=== PATIENT | male | born 1945 | race Caucasian/White ===

== ENCOUNTER 2020-01-07 10:09 | Inpatient (IN) | payer MEDICARE, OTHER ==
[~2020-01-07] VITALS: Ht 180 cm; Wt 107.0 kg
[2020-01-07] VITALS (16 sets, daily range): BP systolic 113–147; BP diastolic 69–101
[2020-01-07] MEDS ORDERED: LOPERAMIDE 2 MG (IMODIUM) TABLET PO PRN (10:15)
[2020-01-07] MEDS ORDERED: ACETAMINOPHEN 500 MG TAB (TYLENOL) PO PRN (10:15)
[2020-01-07] MEDS ORDERED: diphenhydrAMINE 25 MG TAB (BENADRYL) PO PRN (10:15)
[2020-01-07] MEDS ORDERED: CALCIUM CARBONATE 500 MG (TUMS) TAB.CHEW PO PRN (10:15)
[2020-01-07] MEDS ORDERED: MELATONIN 3 MG TABLET PO PRN (10:15)
[2020-01-07] MEDS ORDERED: ALPRAZolam 0.25 MG (XANAX) TAB PO PRN (10:15)
[2020-01-07] MEDS ORDERED: DOCUSATE SODIUM 100 MG (COLACE) CAP PO PRN (10:15)
[2020-01-07] MEDS ORDERED: ONDANSETRON 4 MG (ZOFRAN) ORAL DISSOLVE TAB PO PRN (10:15)
[2020-01-07] MEDS ORDERED: ONDANSETRON 4 MG/2 ML (SDV) Z0FRAN IVP PRN (10:15)
[2020-01-07] MEDS ORDERED: MIDAZOLAM 5 MG/5 ML (VERSED) VIAL ONE (10:27)
[2020-01-07] MEDS ORDERED: NS IV 1000 ML 1,000 ML ONE (10:27)
[2020-01-07] MEDS ORDERED: fentaNYL INJECTION 100 MCG/2 ML AMP ONE (10:27)
[2020-01-07] MEDS ORDERED: HEParin (CATH LAB) 2,000 ML IV ONE (10:27)
[2020-01-07] MEDS ORDERED: LIDOCAINE 1% INJ 20 ML 20 ML VIAL ONE (10:27)
[2020-01-07] MEDS ORDERED: NITRO DRIP 25000 MCG/D5W 0 ML IV ONE (10:28)
[2020-01-07] MEDS ORDERED: HEParin 1000 UNIT/ML (10ML VIAL) FOR BOLUS ONE (10:28)
[2020-01-07] MEDS ORDERED: VERAPAMIL 5 MG/2 ML (CALAN) VIAL IV ONE (10:28)
--- NOTE | 2020-01-07 10:54 | Consultation-Cardiology ---
HPI-Cardiology Cardiology Consultation: Date of Consultation 01/07/20 Date of Admission Attending Physician Addie Davila DO Admitting Physician Addie Davila DO Consulting Physician Chitra RESTREPO MD HPI: Time Seen by a Provider: 10:15 Chief Complaint: Ventricular tachycardia This is a 74-year-old gentleman who is a patient of Dr. Davila. I was first called and urgently during an exercise stress test being supervised by Dr. Davila when the patient developed wide complex tachycardia during exercise. Hemodynamically stable. Review of the strips showed sinus tachycardia with ventricular ectopy. Ventricular ectopy increased with exercise and patient developed nonsustained ventricular tachycardia. Resolved during recovery. Dr. Davila will directly admitted the patient for further evaluation. I spoke at length to the patient. He denies active chest pain. He has mild shortness of breath with exertion. He denies any other cardiac complaints. He has no signif icant cardiac history. He has history of diabetes and hypertension. He denies active smoking. No pertinent family history. Indication for exercise stress test with nuclear imaging was preoperative evaluation for left knee surgery. Review of Systems-Cardiology Review of Systems Constitutional: As described under HPI; No As described under HPI, No no symptoms reported, No chills, No fever, No lightheadedness Eyes: No As described under HPI, No no symptoms reported, No blindness, No blurred vision, No contact lenses, No drainage, No decreased acuity, No foreign body sensation, No pain, No vision change Ears/Nose/Throat: No As described under HPI, No no symptoms reported, No chronic hearing loss, No ear discharge, No ear pain, No nasal drainage, No ulcerations Respiratory: No no symptoms reported; As described under HPI; No As described under HPI, No cough, No orthopnea; shortness of breath; No SOB with excertion Cardiovascular: No no symptoms reported; As described under HPI; No As described under HPI, No chest pain, No edema, No irregular heart rate, No lightheadedness, No palpitations Gastrointestinal: No no symptoms reported, No As described under HPI, No abdomen distended, No abdominal pain, No blood streaked bowels, No constipation, No diarrhea, No nausea, No vomiting, No stool coloration changes Genitourinary: No As described under HPI, No burning, No dysuria, No discharge, No frequency, No flank pain, No hematuria, No urgency Skin: No rash, No skin related problems, No ulcerations Psychiatric/Neurological: No anxiety, No depression, No seizure, No focal weakness, No syncope Hematologic: No bleeding abnormalities AXC-Taovsx-Odlrxp Hx Past Medical History PMH As described under Assessment. Allergies and Home Medications Allergies Coded Allergies: No Known Drug Allergies (Unverified , 01/07/20) Patient Home Medication List Home Medication List Reviewed: Yes Physical Exam-Cardiology Physical Exam Vital Signs/I&O 01/07/20 10:42 Pulse 73 Capillary Refill : Constitutional: appears stated age, AAO x 3; No apparent distress; well- developed, well-nourished HEENT: PERRL; No discharge; hearing is well preserved, oral hygience is good; No ulceration, No xanthelasmas are seen Neck: No carotid bruit; carotid pulses are 2 + bilaterally Respiratory: chest is bilaterally symmetric, lungs clear to auscultation; No crackles, No rhonchi, No stridor, No wheezing, No pleural rub Cardiovascular: regular rate-rhythm, S1 and S2; No diastolic murmur, No systolic murmur Gastrointestinal: soft, audible bowel sounds; No spleenomegaly Rectal: deferred Extremities: normal range of motion, normal inspection; No clubbing, No cyanosis, No significant edema; tenderness (left knee.) Neurologic/Psychiatric: no motor/sensory deficits, alert, normal mood/affect, oriented x 3, power is 5/5 both on sides Skin: normal color, warm/dry; No rash, No ulcerations Data Review Labs Laboratory Tests 01/07/20 11:05: White Blood Count 7.6, Red Blood Count 4.91, Hemoglobin 14.5, Hematocrit 44, Mean Corpuscular Volume 89, Mean Corpuscular Hemoglobin 30, Mean Corpuscular Hemoglobin Concent 33, Red Cell Distribution Width 13.6, Platelet Count 203, Mean Platelet Volume 11.1H, Neutrophils (%) (Auto) 76H, Lymphocytes (%) (Auto) 14, Monocytes (%) (Auto) 8, Eosinophils (%) (Auto) 2, Basophils (%) (Auto) 1, Neutrophils # (Auto) 5.8, Lymphocytes # (Auto) 1.1, Monocytes # (Auto) 0.6, Eosinophils # (Auto) 0.1, Basophils # (Auto) 0.0, Sodium Level 138, Potassium Level 4.6, Chloride Level 103, Carbon Dioxide Level 24, Anion Gap 11, Blood Urea Nitrogen 16, Creatinine 1.47H, Estimat Glomerular Filtration Rate 47, BUN/Creatinine Ratio 11, Glucose Level 226H, Calcium Level 9.2, Corrected Ca lcium 9.0, Total Bilirubin 0.4, Aspartate Amino Transf (AST/SGOT) 21, Alanine Aminotransferase (ALT/SGPT) 29, Alkaline Phosphatase 62, Troponin I < 0.028, B- Type Natriuretic Peptide 13.6, Total Protein 7.3, Albumin 4.3 ECG Impression ECG Comment Baseline EKG showed sinus rhythm with no acute ST-T wave abnormalities. Telemetry strip during exercise showed wide complex tachycardia likely monomorphic nonsustained ventricular tachycardia. Resolved during recovery. A/P-Cardiology Assessment/Admission Diagnosis Nonsustained ventricular tachycardia during exercise stress test. Shortness of breath with exertion, Preoperative evaluation for left knee surgery, Abnormal nuclear stress test, New onset cardiomyopathy, Hypertension, Diabetes Plan Nonsustained ventricular tachycardia during exercise stress test. Will recommend urgent coronary angiography. I discussed at length with the patient and informed consent was taken. 1-2 percent risk of complications including nerve damage, vascular damage, myocardial damage and even was discussed. This was accepted by the patient and we decided to proceed. Shortness of breath with exertion, no florid congestive heart failure on examination. Preoperative evaluation for left knee surgery, Abnormal nuclear stress test, review of myocardial perfusion imaging showed severe intensity, intermediate size distal anterior apical ischemia. Coronary angiography is urgently recommended. New onset cardiomyopathy, ejection fraction on myocardial perfusion imaging is 31 percent. Patient does have mild shortness of breath. We will request an echocardiogram for more accurate evaluation of ejection fraction. Hypertension, we will start outpatient medical therapy. Diabetes, deferred to Dr. Davila. Complicated patient as above. Thank you for your consultation. Please call me if you have any questions. William Restrepo MD, FACP, FACC, FSCAI, FHRS, CCDS Interventional Cardiology Cardiac Electrophysiology Vascular Medicine and Endovascular Interventions Chitra RESTREPO MD January 07, 2020 10:54
--- OUTSIDE RECORDS SUMMARY | 2020-01-07 11:04 | XMS REPORT | Continuity of Care Document ---
Author Organization Unknown Address Unknown Phone Unavailable Allergies There is no data. Medications There is no data. Problems There is no data. Procedures There is no data. Results There is no data. Encounters ACCT No. Visit Date/Time Discharge Status Pt. Type Provider Facility Loc./Unit Complaint [id number] 11/23/2019 07:00:00 020 23:59:59 CLS Preadmit OSKAR ROMERO DO [facility] CARD CAD IN [place] [id number] 01/07/2020 07:00:00 P EN Preadmit OSKAR ROMERO DO [facility] [place]
[2020-01-07 11:16] LABS: BASOPHILS % (AUTO) 1 % (0-10); EOSINOPHILS # (AUTO) 0.1 10^3/uL (0.0-0.3); EOSINOPHILS % (AUTO) 2 % (0-10); HEMATOCRIT 44 % (40-54); HEMOGLOBIN 14.5 G/DL (13.3-17.7); LYMPHOCYTES # (AUTO) 1.1 X 10^3 (1.0-4.0); LYMPHOCYTES % (AUTO) 14 % (12-44); MEAN CORPUSCULAR HEMOGLOBIN 30 PG (25-34); MEAN CORPUSCULAR HGB CONC 33 G/DL (32-36); MEAN CORPUSCULAR VOLUME 89 FL (80-99); MEAN PLATELET VOLUME 11.1 FL (7.4-10.4); MONOCYTES # (AUTO) 0.6 X 10^3 (0.0-1.0); MONOCYTES % (AUTO) 8 % (0-12); NEUTROPHILS # (AUTO) 5.8 X 10^3 (1.8-7.8); NEUTROPHILS % (AUTO) 76 % (42-75); PLATELET COUNT 203 10^3/uL (130-400); RED CELL DISTRIBUTION WIDTH 13.6 % (10.0-14.5); WHITE BLOOD COUNT 7.6 10^3/uL (4.3-11.0)
--- NOTE | 2020-01-07 11:16 | History & Physical-Hospitalist ---
History of Present Illness HPI/Chief Complaint CC: Abnormal stress test with ventricular tachycardia HPI: This is a 74WM clinic Pt for the past one year, with a PMH of diabetes and history of breast CA, and colon CA, who has never underwent any type of cardiac risk stratification, who was originally scheduled for a stress test before the [place] Virus pandemic, he canceled that six weeks ago, rescheduled and that was performed today for pre-op cardiac risk stratification although he walks normally and is very active and has no significant cardiac concerns per patient who was performing on the treadmill and at stage two he began having episodes of ventricular tachycardia and that was essentially sustained for quite some time, he was asymptomatic, no chest pain, no SOB, so Dr. Restrepo was consulted, who just happened to be in the heart center, and he evaluated that to be ventricular tachycardia, needs a cardiac catheterization, he will review the cardiac stress test and I updated the Pt on the plan. Dr. Restrepo reviewed the cardiac stress images showing ejection fraction of 31% and a defect. Cardiac catheterization was then performed showing a stenosis of the coronary vessel in the distal LAD 70-80% with haziness, one stent deployed and he will be monitored in the ICU overnight and he will be started on Plavix and appropriate other medications and I did update Dr. Montoya on this and he will have to hold off on the knee replacement surgery for at least six months. Date Seen 01/07/20 Time Seen by a Provider: 09:00 Attending Physician Addie Romero DO PCP Addie Romero DO Referring Physician Date of Admission January 07, 2020 at 10:12 Home Medications & Allergies Home Medications Reviewed patient Home Medication Reconciliation performed by pharmacy medication reconciliations glass installer technician and/or nursing. Patients Allergies have been reviewed. Allergies Allergies Coded Allergies No Known Drug Allergies (Unverified01/07/20) Past Bgjotzb-Dxprbl-Ebcywj Hx Past Med/Social Hx: Reviewed Nursing Past Med/Soc Hx, Reviewed and Corrections made Patient Social History Marrital Status: Employed/Student: employed Alcohol Use: Denies Use Smoking Status: Never a Smoker Past Medical History breast, colon Cardiac: High Cholesterol, Hypertension Musculoskeletal: Arthritis Endocrine: Diabetes, Non-Insulin dep Did You Recieve Any Treatments: Yes What Type of Treatment Did You: Chemotherapy, Radiation, Surgical Intervention Cancer: breast, colon Review of Systems Constitutional: see HPI, weakness Physical Exam Physical Exam Vital Signs Vital Signs - First Documented 01/07/20 10:42 Pulse 73 Capillary Refill : Height, Weight, BMI Height: '" Weight: lbs. oz. kg; 30.27 BMI Method: General Appearance: No Apparent Distress Eyes: Right Eye Normal Inspection, Right Eye PERRL HEENT: PERRL/EOMI, TMs Normal, Normal ENT Inspection, Pharynx Normal, Moist Mucous Membranes Neck: Full Range of Motion, Normal Inspection, Non Tender Respiratory: Chest Non Tender, Lungs Clear, Normal Breath Sounds, No Accessory Muscle Use, No Respiratory Distress Cardiovascular: Regular Rate, Rhythm, No Edema, No Gallop, No JVD, No Murmur, Normal Peripheral Pulses Gastrointestinal: Normal Bowel Sounds, No Organomegaly, No Pulsatile Mass, Non Tender, Soft Back: Normal Inspection, No CVA Tenderness, No Vertebral Tenderness Extremity: Normal Capillary Refill, Normal Inspection, Normal Range of Motion, Non Tender, No Calf Tenderness, No Pedal Edema Neurologic/Psychiatric: Alert, Oriented x3, No Motor/Sensory Deficits, Normal Mood/Affect Skin: Normal Color, Warm/Dry Lymphatic: No Adenopathy Results Results/Procedures Labs Laboratory Tests 01/07/20 11:05 Patient resulted labs reviewed. 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
[2020-01-07 11:42] LABS: ALBUMIN 4.3 GM/DL (3.2-4.5); BILIRUBIN,TOTAL 0.4 MG/DL (0.1-1.0); CALCIUM 9.2 MG/DL (8.5-10.1); CREATININE SERUM 1.47 MG/DL (0.60-1.30); POTASSIUM 4.6 MMOL/L (3.6-5.0); TOTAL PROTEIN 7.3 GM/DL (6.4-8.2)
[2020-01-07] MEDS ORDERED: TICAGRELOR 90 MG TABLET (BRILINTA) PO ONE (11:44)
[2020-01-07] MEDS ORDERED: ASPIRIN 325 MG (5 GR) TABLET ONE (11:44)
[2020-01-07] MEDS ORDERED: NITRO DRIP 25000 MCG/D5W 250 ML IV ONE (11:56)
--- NOTE | 2020-01-07 12:18 | Cardiac Procedure Note-CS/ASA ---
Pre-Procedure Note Pre-Op Procedure Note H&P Reviewed The H&P was reviewed, patient examined and no changes noted. Date H&P Reviewed: January 07, 2020 Time H&P Reviewed: 10:45 Conscious Sedation Pre-Proced Time 10:45 ASA Score 3 For ASA 3 and 4: Consider anesthesia and medical clearance. Also, for patients with a history of failed moderate sedation consider anesthesia. Airway Lungs Heart ASA score ASA 1: a normal healthy patient ASA 2: a patient with a mild systemic disease (mid diabetes, controlled hypertension, obesity ASA 3: a patient with a severe systemic disease that limits activity (angina, COPD, prior Myocardial infarction) ASA 4: a patient with an incapacitating disease that is a constant threat to life (CHF, renal failure) ASA 5: a moribund patient not expected to survive 24 hrs. (ruptured aneurysm) ASA 6: a declared brain- patient whose organs are being harvested. For emergent operations, add the letter E after the classification Mallampati Classification Grade 1 Sedation Plan Analgesia, Amnesia, Plan communicated to team members, Discussed options with patient/fam, Discussed risks with patient/fam The patient is an appropriate candidate to undergo the planned procedure, sedation, and anesthesia. The patient immediately re-assessed prior to indication. Chitra POPE MD January 07, 2020 12:18
--- NOTE | 2020-01-07 12:24 | Coronary Angiography & PCI ---
Coronary Angiography & PCI DATE OF PROCEDURE: 01/07/20 INDICATION: Ventricular tachycardia during exercise stress test, abnormal nuclear stress test. PREOPERATIVE DIAGNOSIS: Ventricular tachycardia during exercise stress test, abnormal nuclear stress test. POSTOPERATIVE DIAGNOSIS: CAD, Severe distal LAD disease treated with one drug- eluting stent. HISTORY: This is a 74-year-old gentleman with history of hypertension and diabetes. He was undergoing an exercise stress test with myocardial perfusion imaging as a preoperative cardiovascular risk assessment for left knee surgery. During exercise stress test he developed monomorphic ventricular tachycardia. Myocardial perfusion imaging showed severe intensity, intermediate size apical reversible defect suggesting of apical ischemia. Therefore, the patient was scheduled for coronary angiography. PROCEDURES PERFORMED: 1.Coronary angiography. 2.Left heart catheterization. 3.PCI to the distal LAD with a drug-eluting stent. COMPLICATIONS: None. SPECIMENS: None. ESTIMATED BLOOD LOSS: 10 mL ANESTHESIA: Conscious sedation ANTICOAGULATION: IV heparin CONTRAST: 135 ML. FLUOROSCOPY: 6.6 minutes. FLOUROSCOPY DOSE: 1928 mgy. PROCEDURE DETAILS: The patient is a 74 male and was brought to the quality control lab tech after informed consent was taken. All the risks and complications were explained in detail; this included the risk of bleeding, vascular damage, stroke, RI and even . The patient was draped and prepped in the usual sterile fashion. Access was gained in the right femoral artery with a 5 Montenegrin sheath. Coronary angiography and left heart catheterization was performed with a JR4 and JL4 catheter. FINDINGS: 1.Left main: Patent. 2.LAD: Mild slow flow with 70-80 percent distal disease with haziness. 3.Left circumflex artery: Patent. 4.RCA: Mild slow flow with no disease. 5.Left heart catheterization: LV pressure 131/7 mmHg. LVEDP 9 mmHg. Aortic pressure 121/69 mmHg. Normal LV function with no wall motion abnormalities. No gradient across the aortic valve. RECOMMENDATIONS: PCI to distal LAD is recommended. INTERVENTION DETAILS: The right femoral artery sheath was upgraded to a 6 [place]in sheath. EBU 4.0 guide catheter, BMW guidewire and IV heparin for anticoagulation. Patient was given full aspirin and Brilinta 180 mg by mouth 1 before the intervention. Heparin 6000 international units IV times one. The lesion was crossed with the BMW wire. The tip of the wire was placed in the distal aspect of the LAD. Direct stenting was done with the resolute raciel 2 x 12 mm drug-eluting stent at 16 shaggy for 25 seconds. Mild distal spasm was noted which responded to intracoronary 200 g of nitroglycerin. Excellent results with no vascular complication. No residual stenosis and YANIRA-3 flow. Patient tolerated procedure well and did not have any complication. The right femoral artery was closed with a minx device. CONCLUSIONS: 1. Severe distal LAD stenosis with haziness, which corresponds with apical ischemia seen on myocardial perfusion imaging. Patient had ventricular tachycardia during exercise stress test. 2. Dual antiplatelet therapy with aspirin and Brilinta. Aggressive secondary prevention measures including beta nolvia, BELEN inhibitor and high-dose statin therapy. 3. Observation overnight in the ICU. William Restrepo MD, FACP, FACC, [facility] Interventional Cardiology Chitra RESTREPO MD January 07, 2020 12:24
[2020-01-07] MEDS ORDERED: PATIENT MAY USE OWN MEDS, ALL PO SCH (12:30)
[2020-01-07] MEDS ORDERED: METF-399 PO (14:08)
[2020-01-07] MEDS ORDERED: LISI10TA2 PO (14:08)
[2020-01-07] MEDS ORDERED: ASPI-983 PO (14:08)
[2020-01-07] MEDS ORDERED: LEVO100T7 PO (14:08)
[2020-01-07] MEDS ORDERED: ROSU10TA28 PO (14:08)
[2020-01-07] MEDS ORDERED: GLYB2.5T4 PO (14:08)
[2020-01-07] MEDS ORDERED: NAPR220T66 PO (14:08)
--- NOTE | 2020-01-07 14:09 | NUR ---
SPOKE WITH THE PT (HE HAD A MED LIST IN HIS WALLET) AND WENT THRU THE EXT MED HISTORY TO COMPLETE THE MED REC GLYBURIDE 1.25- THE PT HAD THIS STRENGTH WAS LISTED ON PATIENTS MED LIST BUT HE SAID IT WAS RECENTLY CHANGED TO 2.5MG OTC MEDS: ASPIRIN 81 ALEVE
[2020-01-07] MEDS: meTOprolol TARTRATE 25 MG (LOPRESSOR) TABLET PO SCH ×2 (16:00→20:12)
[2020-01-07] MEDS: NS IV 1000 ML 1,000 ML IV SCH ×3 (16:01→22:52)
[2020-01-07] MEDS ORDERED: lisINopril 10 MG (PRINIVIL) TABLET ONE (17:39)
[2020-01-07] MEDS ORDERED: ENOXAPARIN 40 MG/0.4 ML (LOVENOX) SYR SC SCH (17:45)
[2020-01-07] MEDS: HYDROcodone/APAP 5 MG/325 MG (LORTAB) TAB PO PRN (18:00)
[2020-01-07] MEDS: metFORMIN 500 MG (GLUCOPHAGE) TAB PO SCH (18:40)
--- NOTE | 2020-01-07 19:23 | NUR ---
THIS RN NOTIFIED DR. POPE TO CLARIFY MEDICATIONS. THIS RN ASKED DR. POPE IF HE WANTED THE PATIENT TO RECEIVE BOTH ROSUVASTATIN AND ATORVASTATIN. NEW ORDERS OBTAINED TO D/C ROSUVASTATIN. SEE ORDER HX.
[2020-01-07] MEDS: glyBURIDE 2.5 MG (MICRONASE) TAB PO SCH (20:12)
[2020-01-07] MEDS: TICAGRELOR 90 MG TABLET (BRILINTA) PO SCH (20:12)
[2020-01-07] MEDS: SENNA W/DOCUSATE (SENOKOT S) TABLET PO SCH (20:12)
[2020-01-07] MEDS ORDERED: lisINopril 10 MG (PRINIVIL) TABLET PO SCH (21:00)
[2020-01-08] VITALS (8 sets, daily range): BP systolic 94–142; BP diastolic 58–90
[2020-01-08] MEDS: NS IV 1000 ML 1,000 ML IV SCH ×2 (00:34→08:19)
[2020-01-08 03:39] LABS: BASOPHILS % (AUTO) 0 % (0-10); EOSINOPHILS # (AUTO) 0.2 10^3/uL (0.0-0.3); EOSINOPHILS % (AUTO) 3 % (0-10); HEMATOCRIT 40 % (40-54); HEMOGLOBIN 13.7 G/DL (13.3-17.7); LYMPHOCYTES # (AUTO) 1.2 X 10^3 (1.0-4.0); LYMPHOCYTES % (AUTO) 16 % (12-44); MEAN CORPUSCULAR HEMOGLOBIN 30 PG (25-34); MEAN CORPUSCULAR HGB CONC 34 G/DL (32-36); MEAN CORPUSCULAR VOLUME 89 FL (80-99); MEAN PLATELET VOLUME 10.8 FL (7.4-10.4); MONOCYTES # (AUTO) 0.8 X 10^3 (0.0-1.0); MONOCYTES % (AUTO) 11 % (0-12); NEUTROPHILS # (AUTO) 5.2 X 10^3 (1.8-7.8); NEUTROPHILS % (AUTO) 70 % (42-75); PLATELET COUNT 196 10^3/uL (130-400); RED CELL DISTRIBUTION WIDTH 13.6 % (10.0-14.5); WHITE BLOOD COUNT 7.4 10^3/uL (4.3-11.0)
[2020-01-08 03:48] LABS: ALBUMIN 3.9 GM/DL (3.2-4.5); POTASSIUM 4.4 MMOL/L (3.6-5.0)
[2020-01-08 03:50] LABS: CALCIUM 8.9 MG/DL (8.5-10.1)
[2020-01-08 03:51] LABS: TOTAL PROTEIN 6.4 GM/DL (6.4-8.2)
[2020-01-08 03:53] LABS: BILIRUBIN,TOTAL 0.4 MG/DL (0.1-1.0)
[2020-01-08 03:54] LABS: CREATININE SERUM 1.4 MG/DL (0.60-1.30)
[2020-01-08] MEDS: metFORMIN 500 MG (GLUCOPHAGE) TAB PO SCH (05:54)
--- NOTE | 2020-01-08 05:54 | NUR ---
METFORMIN NON-ADMINISTERED ON -OCT DUE TO PT HAVING CONTRAST YESTERDAY 01/07/2020 DURING HEART CATHETERIZATION PROCEDURE.
[2020-01-08] MEDS ORDERED: NAPROXEN 250 MG (NAPROSYN) TABLET PO PRN (06:45)
[2020-01-08] MEDS: TICAGRELOR 90 MG TABLET (BRILINTA) PO SCH (08:18)
[2020-01-08] MEDS: meTOprolol TARTRATE 25 MG (LOPRESSOR) TABLET PO SCH (08:18)
[2020-01-08] MEDS: SENNA W/DOCUSATE (SENOKOT S) TABLET PO SCH (08:19)
[2020-01-08] MEDS: glyBURIDE 2.5 MG (MICRONASE) TAB PO SCH (08:19)
[2020-01-08] MEDS: HYDROcodone/APAP 5 MG/325 MG (LORTAB) TAB PO PRN (08:19)
[2020-01-08] MEDS ORDERED: ASPIRIN E.C. 81 MG (ECOTRIN) TAB PO SCH ×2 (09:00)
[2020-01-08] MEDS ORDERED: ROSUVASTATIN 10 MG (CRESTOR) TABLET PO SCH (09:00)
[2020-01-08] MEDS ORDERED: LEVOTHYROXINE 100 MCG (LEVOTHROID) TAB PO SCH (09:00)
[2020-01-08] MEDS ORDERED: lisINopril 5 MG (PRINIVIL) TABLET PO SCH (09:00)
--- NOTE | 2020-01-08 09:46 | Cardiology Progress Note ---
Cardiology SOAP Progress Note Subjective: No chest pain. Objective: I&O/Vital Signs 01/07/20 01/07/20 01/07/20 01/08/20 22:00 23:00 23:25 00:00 Temp 36.6 Pulse 59 52 Resp 19 17 B/P (MAP) 127/92 (104) 147/90 (109) 117/79 (92) Pulse Ox 98 97 97 O2 Delivery Room Air Room Air Room Air 01/08/20 01/08/20 01/08/20 01/08/20 01:00 01:00 02:00 03:00 Pulse 63 56 59 61 Resp 16 20 27 B/P (MAP) 142/90 (107) 110/87 (95) 119/67 (84) Pulse Ox 96 96 93 O2 Delivery Room Air Room Air Room Air 01/08/20 01/08/20 01/08/20 01/08/20 03:35 04:00 05:00 06:00 Temp 36.4 Pulse 56 60 61 Resp 14 12 13 B/P (MAP) 116/84 (95) 140/86 (104) 94/58 (70) Pulse Ox 95 97 97 O2 Delivery Room Air Room Air Room Air 01/08/20 01/08/20 01/08/20 07:00 08:00 08:31 Pulse 57 59 Resp 13 B/P (MAP) 121/77 (92) Pulse Ox 95 O2 Delivery Room Air Room Air 01/08/20 00:00 Intake Total 150 ml Output Total 575 ml Balance -425 ml Constitutional: appears stated age, AAO x 3; No apparent distress; well- developed, well-nourished Respiratory: chest is bilaterally symmetric, lungs clear to auscultation; No crackles, No rhonchi, No stridor, No wheezing, No pleural rub Cardiovascular: regular rate-rhythm, S1 and S2; No diastolic murmur, No systolic murmur Gastrointestional: soft, audible bowel sounds; No spleenomegaly Extremities: normal range of motion, normal inspection; No clubbing, No cyanosis, No significant edema; tenderness (left knee.) Neurologic/Psychiatric: no motor/sensory deficits, alert, normal mood/affect, oriented x 3, power is 5/5 both on sides Skin: normal color, warm/dry; No rash, No ulcerations Results/Procedures: Labs Laboratory Tests 01/07/20 11:05: White Blood Count 7.6, Red Blood Count 4.91, Hemoglobin 14.5, Hematocrit 44, Mean Corpuscular Volume 89, Mean Corpuscular Hemoglobin 30, Mean Corpuscular Hemoglobin Concent 33, Red Cell Distribution Width 13.6, Platelet Count 203, Mean Platelet Volume 11.1H, Neutrophils (%) (Auto) 76H, Lymphocytes (%) (Auto) 14, Monocytes (%) (Auto) 8, Eosinophils (%) (Auto) 2, Basophils (%) (Auto) 1, Neutrophils # (Auto) 5.8, Lymphocytes # (Auto) 1.1, Monocytes # (Auto) 0.6, Eosinophils # (Auto) 0.1, Basophils # (Auto) 0.0, Sodium Level 138, Potassium Level 4.6, Chloride Level 103, Carbon Dioxide Level 24, Anion Gap 11, Blood Urea Nitrogen 16, Creatinine 1.47H, Estimat Glomerular Filtration Rate 47, BUN/Creatinine Ratio 11, Glucose Level 226H, Calcium Level 9.2, Corrected Calcium 9.0, Total Bilirubin 0.4, Aspartate Amino Transf (AST/SGOT) 21, Alanine Aminotransferase (ALT/SGPT) 29, Alkaline Phosphatase 62, Troponin I < 0.028, B- Type Natriuretic Peptide 13.6, Total Protein 7.3, Albumin 4.3 01/08/20 03:29: White Blood Count 7.4, Red Blood Count 4.53, Hemoglobin 13.7, Hematocrit 40, Mean Corpuscular Volume 89, Mean Corpuscular Hemoglobin 30, Mean Corpuscular Hemoglobin Concent 34, Red Cell Distribution Width 13.6, Platelet Count 196, Me an Platelet Volume 10.8H, Neutrophils (%) (Auto) 70, Lymphocytes (%) (Auto) 16, Monocytes (%) (Auto) 11, Eosinophils (%) (Auto) 3, Basophils (%) (Auto) 0, Neutrophils # (Auto) 5.2, Lymphocytes # (Auto) 1.2, Monocytes # (Auto) 0.8, Eosinophils # (Auto) 0.2, Basophils # (Auto) 0.0, Sodium Level 138, Potassium Level 4.4, Chloride Level 105, Carbon Dioxide Level 24, Anion Gap 9, Blood Urea Nitrogen 18, Creatinine 1.40H, Estimat Glomerular Filtration Rate 50, BUN/Creatinine Ratio 13, Glucose Level 151H, Calcium Level 8.9, Corrected Calcium 9.0, Total Bilirubin 0.4, Aspartate Amino Transf (AST/SGOT) 21, Alanine Aminotransferase (ALT/SGPT) 28, Alkaline Phosphatase 53, Total Protein 6.4, Albumin 3.9 A/P: Assessment/Dx: Nonsustained ventricular tachycardia during exercise stress test. Shortness of breath with exertion, Preoperative evaluation for left knee surgery, Abnormal nuclear stress test, New onset cardiomyopathy, Hypertension, Diabetes Plan: Nonsustained ventricular tachycardia during exercise stress test. Abnormal nuclear stress test which showed apical ischemia. Coronary angiography done 01/07/2020 showed 70-80 percent distal LAD stenosis with haziness suggesting possible thrombus. This correlates with apical ischemia on myocardial perfusion imaging. 2.0 mm drug-eluting stent placed with excellent angiographic results. Dual antiplatelet therapy, beta nolvia, BELEN inhibitor and high-dose statin therapy. Shortness of breath with exertion, no florid congestive heart failure on examination. Normal LVEF on echocardiogram. Preoperative evaluation for left knee surgery, will need to be postponed now. Echocardiogram showed normal LV and RV size and function. Hypertension, we will start outpatient medical therapy. Diabetes, deferred to Dr. Davila. Hyperlipidemia: High-dose statin therapy for hyperlipidemia. Okay to discharge today follow-up in office in 2 weeks. Thank you for your consultation. Please call me if you have any questions. William Restrepo MD, FACP, FACC, FSCAI, FHRS, CCDS Interventional Cardiology Cardiac Electrophysiology Vascular Medicine and Endovascular Interventions Chitra RESTREPO MD January 08, 2020 09:46
[2020-01-08] MEDS ORDERED: LISI10TA2 PO (09:47)
[2020-01-08] MEDS ORDERED: TICA90TA PO (09:47)
[2020-01-08] MEDS ORDERED: METO-333 PO (09:47)
[2020-01-08] MEDS ORDERED: ATOR80TA76 PO (09:47)
--- NOTE | 2020-01-08 11:47 | Discharge Summary ---
Discharge Summary Hospital Course Was the Problem List Reviewed?: Yes Problems/Dx: (1) Ventricular tachycardia (2) Presence of stent in LAD coronary artery (3) Diabetes (4) Malignant melanoma of male breast (5) History of colon cancer Hospital Course Date of Admission: January 07, 2020 at 10:12 Admission Diagnosis : Family Physician/Provider: Addie Romero DO Date of Discharge: 01/08/20 Discharge Diagnosis: Ventricular tachycardia during stress test, LAD stenosis impending PR, DM, CRI, HTN, HLP, hx breast CA, hx of Colon cancer Hospital Course: Short course after admitted directly after stress test induced ventricular tachycardia asymptomatic. Stress test was for risk factor evaluation for left total knee replacement by Dr Montoya. Patient is my clinic patient so I scheduled EST. Patient assessed by Dr Restrepo and noted EF 31% so he required cardiac catherization and found to have impending LAD PR and stenosis of 80% so stent was placed and patient remained stable in ICU. Some meds added and changed at DC but Brilinta initiated and patient will see me and Dr Restrepo in close f/u. Labs and Pending Lab Test: Laboratory Tests 01/08/20 03:29: White Blood Count 7.4, Red Blood Count 4.53, Hemoglobin 13.7, Hematocrit 40, Mean Corpuscular Volume 89, Mean Corpuscular Hemoglobin 30, Mean Corpuscular Hemoglobin Concent 34, Red Cell Distribution Width 13.6, Platelet Count 196, Mean Platelet Volume 10.8H, Neutrophils (%) (Auto) 70, Lymphocytes (%) (Auto) 16, Monocytes (%) (Auto) 11, Eosinophils (%) (Auto) 3, Basophils (%) (Auto) 0, Neutrophils # (Auto) 5.2, Lymphocytes # (Auto) 1.2, Monocytes # (Auto) 0.8, Eosinophils # (Auto) 0.2, Basophils # (Auto) 0.0, Sodium Level 138, Potassium Level 4.4, Chloride Level 105, Carbon Dioxide Level 24, Anion Gap 9, Blood Urea Nitrogen 18, Creatinine 1.40H, Estimat Glomerular Filtration Rate 50, BUN/Creatinine Ratio 13, Glucose Level 151H, Calcium Level 8.9, Corrected Calcium 9.0, Total Bilirubin 0.4, Aspartate Amino Transf (AST/SGOT) 21, Alanine Aminotransferase (ALT/SGPT) 28, Alkaline Phosphatase 53, Total Protein 6.4, Albumin 3.9 Home Meds Active Metoprolol Tartrate 25 Mg Tablet 25 Mg PO BID 90 Days Atorvastatin Calcium 80 Mg Tablet 80 Mg PO HS 90 Days Brilinta (Ticagrelor) 90 Mg Tablet 90 Mg PO BID 90 Days Lisinopril 10 Mg Tablet 2.5 Mg PO HS 90 Days Reported Aleve (Naproxen Sodium) 220 Mg Tablet 440 Mg PO DAILY PRN Aspirin EC (Aspirin) 81 Mg Tablet. 81 Mg PO DAILY Metformin HCl 1,000 Mg Tablet 1,000 Mg PO BID Rosuvastatin Calcium 10 Mg Tablet 10 Mg PO DAILY Glyburide 2.5 Mg Tablet 2.5 Mg PO BID Levothyroxine Sodium 100 Mcg Tablet 100 Mcg PO DAILY Assessment/Pt Instructions Dr Romero next week as scheduled Dr Sheridan as scheduled Discharge Planning: <30 minutes discharge planning Discharge Instructions Discharge Diet: ADA Diet, Cardiac Diet Activity as Tolerated: Yes Discharge Physical Examination Vital Signs Vital Signs Date Time Temp Pulse Resp B/P (MAP) Pulse Ox O2 Delivery O2 Flow Rate FiO2 01/08/20 08:31 Room Air 01/08/20 08:00 59 13 121/77 (92) 95 01/08/20 03:35 36.4 General Appearance: No Apparent Distress, WD/WN Allergies: Coded Allergies: No Known Drug Allergies (Unverified , 01/07/20) Discharge Summary Date of Admission January 07, 2020 at 10:12 Date of Discharge Discharge Date: January 08, 2020 Admission Diagnosis Assessment: Ventricular tachycardia noted on stress test Urgent cardiac cath requiring stent LAD DM HTN HLP Breast cancer hx Colon cancer hx Plan: Plavix Appreciate Dr Restrepo Discharge Diagnosis (1) Ventricular tachycardia (2) Presence of stent in LAD coronary artery (3) Diabetes (4) Malignant melanoma of male breast (5) History of colon cancer Clinical Quality Measures DVT/VTE Risk/Contraindication: Risk Factor Score Per Nursin RFS Level Per Nursing on Admit: 2=Moderate ADDIE ROMERO DO January 08, 2020 11:47
== END 2020-01-08 13:00 | disposition home or self-care (01) | DRG 247 ==
LOC: ICU 10:12
PROVIDERS: ADMIT Internal Medicine; ATTEND Internal Medicine
PROC: 027034Z Dilation of Coronary Artery, One Artery with Drug-eluting Intraluminal Device, Percutaneous Approach (ICD-10-PCS; principal; 2020-01-07)
PROC: 4A023N7 Measurement of Cardiac Sampling and Pressure, Left Heart, Percutaneous Approach (ICD-10-PCS; 2020-01-07)
PROC: B2111ZZ Fluoroscopy of Multiple Coronary Arteries using Low Osmolar Contrast (ICD-10-PCS; 2020-01-07)
PROC: B2151ZZ Fluoroscopy of Left Heart using Low Osmolar Contrast (ICD-10-PCS; 2020-01-07)
DX: I25.10 Atherosclerotic heart disease of native coronary artery without angina pectoris (principal); I47.2 Ventricular tachycardia; R94.39 Abnormal result of other cardiovascular function study; I42.9 Cardiomyopathy, unspecified; I12.9 Hypertensive chronic kidney disease with stage 1 through stage 4 chronic kidney disease, or unspecified chronic kidney disease; N18.9 Chronic kidney disease, unspecified; E11.9 Type 2 diabetes mellitus without complications; E78.5 Hyperlipidemia, unspecified; Z85.038 Personal history of other malignant neoplasm of large intestine; Z85.820 Personal history of malignant melanoma of skin; Z92.21 Personal history of antineoplastic chemotherapy; Z92.3 Personal history of irradiation
CPT/HCPCS: 36415; 80053; 83880; 84484; 85025; 85027; 85347; 93005; 93306; 93458

== ENCOUNTER → 2020-01-07 | Outpatient (CLI) | payer MEDICARE ==
[~2020-01-07] VITALS: Ht 188 cm; Wt 107.0 kg
[~2020-01-07] MED LIST: ASPI-983 PO; ATOR80TA76 PO; CATHETER FLUSH 10 ML SYR IV PRN; GLYB2.5T4 PO; LEVO100T7 PO; LISI10TA2 PO; METF-399 PO; METO-333 PO; NAPR220T66 PO; ROSU10TA28 PO; TICA90TA PO
[2020-01-07 09:09] VITALS: BP 180/109
[2020-01-07 10:20] VITALS: BP 140/89
--- NOTE | 2020-01-07 10:59 | Cardiology Stress Test Report ---
Stress Test Report Type of NM Stress Test: Test Type: NUCLEAR TREADMILL Date of Procedure/Referring: Date of Procedure: January 07, 2020 PCP Addie Davila DO Admitting Physician Addie Davila DO Indications: Preoperative cardiovascular risk assessment. Baseline Blood Pressure: Blood Pressure Systolic: 140 Blood Pressure Diastolic: 89 Summary & Conclusion: Summary: The patient was brought to the stress lab after informed consent was taken. Stress test was performed according to the Carlo protocol. Please review Dr. Davila's report of exercise stress test. Briefly the patient developed ventricular ectopy with increasing intensity during exercise. Wide complex tachycardia during peak exercise, likely monomorphic nonsustained ventricular tachycardia. 10.57 mCi of Myoview were given for rest imaging and 28.5 mCi of Myoview given for stress imaging. Transient ischemic dilatation score 1.08, EF 31 percent. Normal wall motion. Severe intensity, intermediate size reversible apical defect. Conclusion: Monomorphic nonsustained ventricular tachycardia during exercise stress test. Reduced LV function. Likely apical ischemia, coronary angiography is recommended. Chitra POPE MD January 07, 2020 10:59
== END ==
LOC: CARD 07:12
PROVIDERS: ATTEND Internal Medicine
DX: I25.10 Atherosclerotic heart disease of native coronary artery without angina pectoris (principal)
CPT/HCPCS: 78452; 93017

== ENCOUNTER 2020-09-16 12:51 | Outpatient (RCR) | payer MEDICARE, OTHER ==
[~2020-09-16 12:51] MED LIST changes: +ASPI-1238 PO; -ASPI-983 PO; -CATHETER FLUSH 10 ML SYR IV PRN
== END 2020-09-16 13:50 | disposition home or self-care (01) ==
PROVIDERS: ATTEND Nurse Practitioner Family
DX: Z96.652 Presence of left artificial knee joint (principal)

== ENCOUNTER → 2021-02-06 | Outpatient (CLI) | payer MEDICARE, OTHER ==
[~2021-02-06] MED LIST changes: +GLBR2.5T PO; -GLYB2.5T4 PO; -LISI10TA2 PO; +LISI10TA25 PO
[2021-02-06 12:07] LABS: ALANINE AMINOTRANSFERASE 17 U/L (0-55); ALBUMIN 4.1 GM/DL (3.2-4.5); ALKALINE PHOSPHATASE 85 U/L (40-136); BILIRUBIN,TOTAL 0.7 MG/DL (0.1-1.0); BUN/CREATININE RATIO 17; CALCIUM 9.5 MG/DL (8.5-10.1); CARBON DIOXIDE 24 MMOL/L (21-32); CHLORIDE 105 MMOL/L (98-107); CHOLESTEROL 117 MG/DL (< 200); CREATININE SERUM 1.16 MG/DL (0.60-1.30); GFR ESTIMATED > 60; GLUCOSE 100 MG/DL (70-105); HDL CHOLESTEROL 36 MG/DL (40-60); POTASSIUM 4.2 MMOL/L (3.6-5.0); SODIUM 139 MMOL/L (135-145); TOTAL PROTEIN 7.2 GM/DL (6.4-8.2); TRIGLYCERIDES 91 MG/DL (<150); VLDL CHOLESTEROL 18 MG/DL (5-40)
== END ==
LOC: LAB 11:21
PROVIDERS: ATTEND Internal Medicine Cardiovascular Disease
DX: E78.2 Mixed hyperlipidemia (principal)
CPT/HCPCS: 36415; 80053; 80061

== ENCOUNTER → 2022-05-16 | Outpatient (CLI) | payer MEDICARE, OTHER ==
[~2022-05-16] VITALS: Ht 188 cm; Wt 101.2 kg
[~2022-05-16] MED LIST changes: +ATOR20TA66 PO; +GLYB1.253 PO
== END | disposition home or self-care (01) ==
LOC: PREOP 06:35
PROVIDERS: ATTEND Surgery
DX: Z01.818 Encounter for other preprocedural examination (principal)

== ENCOUNTER 2022-05-23 11:44 | Day surgery (SDC) | payer MEDICARE, OTHER ==
[~2022-05-23] VITALS: Ht 188 cm; Wt 101.2 kg
[2022-05-23] MEDS ORDERED: LACTATED RINGERS 1,000 ML IV STA (11:46)
[2022-05-23] MEDS ORDERED: LIDOCAINE JELLY 2% 6 ML SYRINGE MM PRN (12:00)
[2022-05-23 12:05] VITALS: BP 139/100
[2022-05-23] MEDS ORDERED: PROPOFOL INJECTION 50 ML IV ONE (12:15)
--- NOTE | 2022-05-23 12:19 | Progress Note-Pre Operative ---
Pre-Operative Progress Note Date of Available H&P: May 23, 2022 Date H&P Reviewed: May 23, 2022 Time H&P Reviewed: 12:00 History & Physical: No changes noted Pre-Operative Diagnosis: screening, hx colon cancer YAEL MAGAÑA MD May 23, 2022 12:19
--- NOTE | 2022-05-23 12:20 | Discharge Inst-Surgical ---
D/C Lap Instructions-ARCHANA Follow Up Activity as tolerated High Fiber Diet 25g or more per day Avoid Alcohol, Caffeine, Spicy [place] and Acid foods. Drink 64 fluid oz or more of fluids per day. Symptoms to Report: Fever over 101 degree F, Nausea/Vomiting If any problems/questions: Contact your physician or go to Emergency Room YAEL MAGAÑA MD May 23, 2022 12:20
[2022-05-23] MEDS ORDERED: ONDANSETRON 4 MG (ZOFRAN) ORAL DISSOLVE TAB PO PRN (12:30)
[2022-05-23] MEDS ORDERED: ONDANSETRON 4 MG/2 ML (SDV) Z0FRAN IVP PRN (12:30)
[2022-05-23 12:55] VITALS: BP 97/60
--- NOTE | 2022-05-23 12:59 | Anesthesia-General Post-Op ---
MAC Patient Condition Mental Status/LOC: Same as Preop Cardiovascular: Satisfactory Nausea/Vomiting: Absent Respiratory: Satisfactory Pain: Controlled Complications: Absent Post Op Complications Complications None Follow Up Care/Instructions Patient Instructions None needed. Anesthesiology Discharge Order Discharge Order Patient is doing well, no complaints, stable vital signs, no apparent adverse anesthesia problems. No complications reported per nursing. PAUL MCADAMS CRNA May 23, 2022 12:59
[2022-05-23 13:00] VITALS: BP 95/67
--- NOTE | 2022-05-23 13:07 | Progress Note-Post Operative ---
Post-Operative Progess Note Surgeon (s)/Irrigation Worker (s) Surgeon YAEL MAGAÑA MD Irrigation Worker: none Pre-Operative Diagnosis screening, hx colon cancer Post-Operative Diagnosis stage 3 ext and int hemorrhoids, small polyps(3mm)(rectosigmoid, descendingx4), normal anastomosis. Procedure & Operative Findings Date of Procedure 05/23/22 Procedure Performed/Findings colonoscopy with hot forcep polypectomy Anesthesia Type mac Estimated Blood Loss Estimated blood loss (mL): minimal Specimens/Packing Specimens Removed polyp rectosigmoid, desc colon x4 YAEL MAGAÑA MD May 23, 2022 13:07
[2022-05-23 13:25] VITALS: BP 127/75
[2022-05-23 13:35] VITALS: BP 127/75
--- NOTE | 2022-05-23 21:23 | OPERATIVE REPORT ---
DATE OF SERVICE: 05/23/2022 ATTENDING PRIMARY CARE PHYSICIAN: Dr. Davila. PREOPERATIVE DIAGNOSIS: Screening colonoscopy with personal history of colon cancer. POSTOPERATIVE DIAGNOSES: Grade III external and internal hemorrhoids, small polyp of the rectosigmoid junction approximately 3 mm in size, normal anastomosis with what appears to be between the ascending and descending colon. At the descending colon, there were approximately four small polyps, no bigger than 3 mm in size. Normal cecum. PROCEDURE: Colonoscopy with biopsy. SURGEON: Yael Palmer MD. ANESTHESIA: Monitored anesthesia care. ESTIMATED BLOOD LOSS: Minimal. FINDINGS: Grade III external and internal hemorrhoids, small polyp of the rectosigmoid junction approximately 3 mm in size, normal anastomosis with what appears to be between the ascending and descending colon. At the descending colon, there were approximately four small polyps, no bigger than 3 mm in size. Normal cecum. DISPOSITION: The patient tolerated the procedure well. INDICATIONS: The patient is a 76-year-old male in need of a screening colonoscopy. His last colonoscopy was approximately five years ago. He was diagnosed with colon cancer in 2009 and underwent a colon resection with end colostomy and then a reanastomosis at a later time. He then underwent chemotherapy and radiation. He also does have a personal history of a right breast cancer diagnosed in 2011 and underwent a right modified radical mastectomy. He underwent chemotherapy and radiation after that procedure as well. He is in need of a screening colonoscopy. DESCRIPTION OF PROCEDURE: The patient was brought to the endoscopy suite, laid in the left lateral decubitus position. After adequate IV pain and sedative medications and monitored anesthesia care, a digital rectal examination was performed. Stage III external and internal hemorrhoids were identified with some mild inflammation and no bleeding. Normal sphincter tone was felt and there were no palpable masses. Prostate gland was palpable and appeared normal. The endoscope was then intubated to the anus, rectum gently insufflated. The endoscope was then advanced through the valves of Shepard of the rectum with no polyps or any neoplasms identified. At the rectosigmoid junction, a small polyp identified approximately 3 to 4 mm in size, and this was biopsied and destroyed using forceps and electrocautery. The endoscope was then advanced through what appeared to be the descending colon where there were multiple small polyps, 4 to be exact, and each of these were approximately 2 to 3 mm and biopsied and destroyed with forceps and electrocautery. The area of anastomosis appeared to be between the ascending and descending colon. The endoscope was then advanced through the ascending colon to the cecum, which appeared normal. The endoscope was then slowly withdrawn while taking a second look and suctioning of residual air with no additional findings. The patient tolerated the procedure well. We will await the biopsy results. If these are simple tubular adenomas, we will recommend a high fiber diet with at least 30 grams of fiber daily. However, he will still need a followup colonoscopy within five years. Job ID: [id number] DocumentID: [id number] Dictated Date: 05/23/2022 12:56:10 Sausage Grinder Date: 05/23/2022 21:23:14 Dictated By: YAEL PALMER MD MTDD
== END 2022-05-23 13:35 | disposition home or self-care (01) ==
LOC: ENDO 11:44
PROVIDERS: ATTEND Surgery
DX: Z12.11 Encounter for screening for malignant neoplasm of colon (principal); D12.4 Benign neoplasm of descending colon; D12.8 Benign neoplasm of rectum; K63.5 Polyp of colon; Z85.038 Personal history of other malignant neoplasm of large intestine; K64.8 Other hemorrhoids; K64.3 Fourth degree hemorrhoids; Z85.3 Personal history of malignant neoplasm of breast; E11.9 Type 2 diabetes mellitus without complications

== ENCOUNTER → 2022-07-16 | Outpatient (CLI) | payer MEDICARE, OTHER ==
[~2022-07-16] MED LIST changes: +CATHETER FLUSH 10 ML SYR IVP PRN; +REGADENOSON 0.4 MG/5 ML SYR (LEXISCAN) IV ONE
[2022-07-16 08:55] VITALS: BP 119/40
--- NOTE | 2022-07-16 12:04 | Cardiology Stress Test Report ---
Stress Test Report Date of Procedure/Referring: Date of Procedure: Jul 16, 2022 PCP Addie Davila DO Admitting Physician Admitting Physician: Attending Physician: Rachna Martin MD Indications: HTN Baseline Blood Pressure: Blood Pressure Systolic: 119 Blood Pressure Diastolic: 40 Vital Signs Date Time Temp Pulse Resp B/P (MAP) Pulse Ox O2 Delivery O2 Flow Rate FiO2 07/16/22 08:55 60 119/40 (66) 98 Baseline Vital Signs Vital Signs Date Time Temp Pulse Resp B/P (MAP) Pulse Ox O2 Delivery O2 Flow Rate FiO2 07/16/22 08:55 60 119/40 (66) 98 Baseline EKG: Baseline EKG: NSR Summary: After explaining the procedure and details to the patient, he signed the consent and was brought to the stress nuclear laboratory. Patient exercised on standard Carlo protocol, EKG, heart rate and blood pressure were monitored continuously, resting and stress doses of radio tracer were injected, imaging was acquired and reviewed in the short axis, horizontal long axis and vertical long axis views Patient was able to exercise for a total of 4.50 minutes on Carlo protocol, METs 6.4 Maximum heart rate 147 Maximum blood pressure 215/117 Stress EKG, Minimal nondiagnostic changes Recovery EKG, Return to baseline TID: 1.04 SSS: 2 SDS: 1 EF: 44 Conclusion: 1. Fair exercise tolerance for a total of 4 minutes and 50 seconds on standard Carlo protocol, 6.4 METS achieving 100% of maximum expected heart rate 2. Exercise-induced wide-complex tachycardia with questionable underlying ventricular tachycardia, frequent PVCs noted with exercise. 3. Mild area of ischemia noted on the stress test involving the inferoapical segment of the left ventricle 4. Normal left ventricular size with hypokinesia in the anterior wall, ejection fraction 44% Copy Copies To 1: ADDIE DAVILA BASHAR J MD Jul 16, 2022 12:04
== END ==
LOC: CARD 08:15
PROVIDERS: ATTEND Internal Medicine Cardiovascular Disease
DX: I10 Essential (primary) hypertension (principal); I25.10 Atherosclerotic heart disease of native coronary artery without angina pectoris
CPT/HCPCS: 78452; 93017; A9502

== ENCOUNTER 2022-07-18 13:00 | Day surgery (SDC) | payer MEDICARE, OTHER ==
[2022-07-18] VITALS (11 sets, daily range): BP systolic 113–143; BP diastolic 70–116
[~2022-07-18] VITALS: Ht 188 cm; Wt 102.5 kg
[2022-07-18 11:24] LABS: HEMATOCRIT 47 % (40-54); HEMOGLOBIN 15.7 g/dL (13.3-17.7); MEAN CORPUSCULAR HEMOGLOBIN 30 pg (25-34); MEAN CORPUSCULAR HGB CONC 34 g/dL (32-36); MEAN CORPUSCULAR VOLUME 90 fL (80-99); MEAN PLATELET VOLUME 10.7 fL (9.0-12.2); PLATELET COUNT 259 10^3/uL (130-400); WHITE BLOOD COUNT 7.7 10^3/uL (4.3-11.0)
--- NOTE | 2022-07-18 11:24 | Diagnostic Imaging Report ---
Indication: Pre-heart catheterization. Time of Exam: 11:15 AM No prior studies are available for comparison. The heart size is normal. There is some scarring or atelectasis the right upper lung field. Otherwise lungs are clear. No effusion or pneumothorax is seen. There are clips in the right axilla. IMPRESSION: Chronic changes in the right upper lobe. No acute features detected. Dictated by: Dictated on workstation # [id number]
[2022-07-18 11:25] LABS: BILIRUBIN,URINE NEGATIVE (NEGATIVE); CLARITY,URINE CLEAR; COLOR,URINE YELLOW; GLUCOSE, URINE (UA) NEGATIVE (NEGATIVE); KETONES,URINE NEGATIVE (NEGATIVE); LEUKOCYTE ESTERASE ,URINE NEGATIVE (NEGATIVE); NITRITE,URINE NEGATIVE (NEGATIVE); PH,URINE 5.5 (5-9); PROTEIN,URINE NEGATIVE (NEGATIVE)
[2022-07-18 11:31] LABS: BACTERIA,URINE NEGATIVE /HPF; SQUAMOUS EPITHELIAL CELL,UR RARE /HPF
[2022-07-18 11:45] LABS: ALANINE AMINOTRANSFERASE 17 U/L (0-55); ALBUMIN 4.6 GM/DL (3.2-4.5); ALKALINE PHOSPHATASE 76 U/L (40-136); BILIRUBIN,TOTAL 0.5 MG/DL (0.1-1.0); BUN/CREATININE RATIO 15; CALCIUM 9.8 MG/DL (8.5-10.1); CARBON DIOXIDE 21 MMOL/L (21-32); CHLORIDE 103 MMOL/L (98-107); CHOLESTEROL 152 MG/DL (< 200); CREATININE SERUM 1.57 MG/DL (0.60-1.30); GFR ESTIMATED 45; GLUCOSE 172 MG/DL (70-105); HDL CHOLESTEROL 37 MG/DL (40-60); POTASSIUM 4.3 MMOL/L (3.6-5.0); SODIUM 139 MMOL/L (135-145); TOTAL PROTEIN 8.1 GM/DL (6.4-8.2); TRIGLYCERIDES 137 MG/DL (<150); VLDL CHOLESTEROL 27 MG/DL (5-40)
--- NOTE | 2022-07-18 11:53 | Cardiac Procedure Note-CS/ASA ---
Pre-Procedure Note Pre-Op Procedure Note Date of Available H&P: Jun 18, 2022 Date H&P Reviewed: Jul 18, 2022 Time H&P Reviewed: 11:53 History & Physical: H&P Reviewed, Patient Examed, No changes noted Pre-Operative Diagnosis: CAD Conscious Sedation Pre-Proced Time 11:53 ASA Score 3 For ASA 3 and 4: Consider anesthesia and medical clearance. Also, for patients with a history of failed moderate sedation consider anesthesia. Airway Lungs Heart ASA score ASA 1: a normal healthy patient ASA 2: a patient with a mild systemic disease (mid diabetes, controlled hypertension, obesity ASA 3: a patient with a severe systemic disease that limits activity (angina, COPD, prior Myocardial infarction) ASA 4: a patient with an incapacitating disease that is a constant threat to life (CHF, renal failure) ASA 5: a moribund patient not expected to survive 24 hrs. (ruptured aneurysm) ASA 6: a declared brain- patient whose organs are being harvested. For emergent operations, add the letter E after the classification Mallampati Classification Grade 3 Sedation Plan Analgesia, Amnesia, Plan communicated to team members, Discussed options with patient/fam, Discussed risks with patient/fam The patient is an appropriate candidate to undergo the planned procedure, sedation, and anesthesia. The patient immediately re-assessed prior to indication. NIRAV LAGUNAS MD Jul 18, 2022 11:53
[2022-07-18 11:54] LABS: PROTHROMBIN TIME PATIENT 13.2 SEC (12.2-14.7)
--- NOTE | 2022-07-18 12:39 | Discharge Inst-Post CATH ---
Discharge Inst-CATH/EP Problems Reviewed?: Yes Post Cardiac Cath/EP D/C Inst Follow Up/Plan Hold metformin for [address] Martin's office and 2 to 4 weeks <b>CARDIAC CATH/EP PROCEDURE DISCHARGE INSTRUCTIONS</b> ACTIVITY * Go Home directly and rest. * Limit activity of the leg (or wrist if it was used) for 7 days including aerobics, swimming, jogging, bicycling, etc. * Restrict stair-climbing for 7 days if possible, if not, climb up with your non-cath leg, then bring together on the same step. * Avoid lifting, pushing, pulling or excessive movement of the affected extremity for 7 days. * Customary sexual activity may be resumed after 2 days-use caution not to use a position that strains or causes pain to the affected extremity. * No driving for 24 hours. * NO SMOKING. * Avoid straining for bowel movements for 7 days. * Gentle walking on level ground is allowed. * Returning to work will depend on the type of procedure and the results. Your doctor will discuss this with you. CALL YOUR DOCTOR FOR ANY OF THE FOLLOWING: *If bleeding from the puncture site occurs- Apply gentle pressure to site with clean cloth and call your doctor or EMS. * If a knot or lump forms under the skin, increases in size, or causes pain. * If bruising appears to be worsening or moving further down your leg instead of disappearing. * Temperature above 101 F. CARE OF YOUR GROIN INCISION; * Bruising or purple discoloration of the skin near the puncture site is common. * You may shower only, no bathtub bathing for 5 days. Be careful to avoid slipping as your leg may feel stiff. * If a closure device was used on your femoral artery, please see the attached guide regarding care of the device and your leg. * Leave dressing on FOR 24 hours. CARE OF YOUR WRIST INCISION; * Bruising or purple discoloration of the skin near the puncture site is common. * You may shower. * DO NOT submerge wrist. * Leave dressing on FOR 24 hours. NIRAV MARTIN MD Jul 18, 2022 12:39
--- NOTE | 2022-07-18 12:41 | Cardiac Cath Report ---
Cardiac Cath Report Physician (s)/Ecommerce Manager (s) Physician NIRAV LAGUNAS MD Pre-Procedure Diagnosis Pre-Procedure Diagnosis: CAD Post-Procedure Note Procedure Start Date: Jul 18, 2022 Name of Procedure: Left heart catheterization Findings/Procedure Note PROCEDURE NOTE: 76-year-old gentleman with history of coronary artery disease, hypertension hyperlipidemia, diabetes mellitus. Had an abnormal stress test, cardiac catheterization was advised. After explaining the procedure to the patient, all pros and cons were explained, all questions were answered. The patient signed the consent and then he was placed on the cardiac catheterization laboratory. Groin was prepped SL fashion local anesthesia was used. Sheath placed in the right femoral artery. Veronica right and left catheter were used to access the coronary system. Veronica right was prolapsed to the left ventricular cavity, pressure was measured no left ventriculogram was done. Pullback LV to aorta was done. At the end of the procedure the sheath was removed. Closure device was deployed FINDINGS: Hemodynamics LV 105/2, end-diastolic pressure of 2 Aorta 101/56 mean of 71 ANATOMY: Left Main is free of obstructive disease Left Anterior Descending is slightly tortuous with patent stent at the mid to distal LAD, no significant obstructive disease Left Circumflex has mild disease nonobstructive disease Right Coronary Artery is dominant artery with mild diffuse ectasia and slow flow in the right coronary artery nonobstructive disease LV Gram was not done, pressure was measured CONCLUSION: 1. Patent stent in the mid to distal LAD with no significant obstructive disease 2. Diffuse coronary ectasia in the right coronary artery with slow flow in the right coronary artery nonobstructive disease 3. Normal left ventricular end-diastolic pressure DISCUSSION AND RECOMMENDATION: Continue to maximize medical therapy no intervention is warranted Anesthesia Type: Conscious Sedation Estimated blood loss (mL): 10 ml Contrast Amount: 18 ml Total Radiation Dose: 689 mGy Post-Procedure Diagnosis Post-operative diagnosis: Chest pain Coronary artery disease Hypertension Hyperlipidemia Diabetes mellitus NIRAV LAGUNAS MD Jul 18, 2022 12:41
[~2022-07-18 13:00] MED LIST changes: -CATHETER FLUSH 10 ML SYR IVP PRN; +HEParin (CATH LAB) 2,000 ML IV ONE; +LIDOCAINE 1% INJ 30 ML (XYLOCAINE) VIAL ONE; +MIDAZOLAM 5 MG/5 ML (VERSED) VIAL ONE; +NS IV 1000 ML 1,000 ML IV SCH; +NS IV 1000 ML 1,000 ML ONE; +PATIENT MAY USE OWN MEDS, ALL PO SCH; -REGADENOSON 0.4 MG/5 ML SYR (LEXISCAN) IV ONE; +fentaNYL INJ 100 MCG/2 ML AMP ONE
== END 2022-07-18 17:09 | disposition home or self-care (01) ==
LOC: CATH 13:00 → SDC 13:15 → CATH 17:09
PROVIDERS: ATTEND Internal Medicine Cardiovascular Disease
DX: I25.10 Atherosclerotic heart disease of native coronary artery without angina pectoris (principal); I10 Essential (primary) hypertension; E11.9 Type 2 diabetes mellitus without complications; E66.9 Obesity, unspecified; I65.23 Occlusion and stenosis of bilateral carotid arteries; E78.2 Mixed hyperlipidemia; Z68.29 Body mass index [BMI] 29.0-29.9, adult; Z79.84 Long term (current) use of oral hypoglycemic drugs; Z79.899 Other long term (current) drug therapy
CPT/HCPCS: 71045; 80053; 80061; 81000; 85027; 85610; 85730; 87081; 93005; 93458; C1760; C1894; 36415